=== PATIENT | male | born 1950 | race Caucasian/White ===

== ENCOUNTER → 2017-05-17 | Day surgery (SDC) | payer MEDICARE, OTHER ==
[~2017-05-17] MED LIST: CHOL1CAP6 PO; FE FCAP PO; GLIM1 PO; IRON28TA PO; LACTATED RINGER'S 1000 ML INJ 1,000 ML ONE; LEVEMIR SQ; LIBRAX PO; LORTA5 PO; NOVOLOGSS; OMEP20TA PO; PROPOFOL 200 MG/20 ML AMP IV ONE
== END | disposition home or self-care (01) ==
LOC: ESDC 07:10
PROVIDERS: ATTEND Internal Medicine Gastroenterology
DX: I85.00 Esophageal varices without bleeding (principal); K74.60 Unspecified cirrhosis of liver; K22.10 Ulcer of esophagus without bleeding; K76.6 Portal hypertension; K31.89 Other diseases of stomach and duodenum
CPT/HCPCS: 00731; 43244; 82948; J3010; J7120